=== PATIENT | female | born 1985 | race Caucasian/White ===

== ENCOUNTER 2024-11-25 16:24 | Observation (INO) | payer MEDICAID, SELFPAY ==
[2024-11-25] VITALS (67 sets, daily range): BP systolic 111–134; BP diastolic 61–82; PULSE 78–104; RESP 18–99; TEMP 36.9–37; O2SAT 88–100; BMI 23.7
--- NOTE | 2024-11-25 16:53 | XR_ITS ---
Examination: Complete OB ultrasound greater than 14 weeks Date and time of exam: November 25, 2024, 1723 hours INDICATIONS: No care Findings: Viable intrauterine single fetus with single amniotic sac presentation Vertex. Cardiac motion 137 BPM. Placenta fundal grade 3. Amniotic fluid volume within normal limits. Ovaries obscured by bowel gas.. Composite estimated gestational age based on BPD, head circumference, abdominal circumference, femur length is 36 weeks 4 days Estimated weight 2908.9 g. Survey of intracranial anatomy, spinal anatomy, abdominal anatomy, four-chamber heart performed with no abnormalities identified. Impression: Viable intrauterine gestation vertex presentation.
[2024-11-25 17:27] LABS: Amphetamine/Metham Scrn,Ur OB Positive (Negative); Benzoylecgonine Screen, Ur OB Negative (Negative); Opiate Screen,Urine OB Negative (Negative); THC Screen,Urine OB Positive (Negative)
[2024-11-25 17:28] LABS: Amphetamines/Metham U Confirm* See Sep Rpt; THC U Confirm* See Sep Rpt
[2024-11-25 17:29] LABS: ROM Kit Lot # 58102387; ROM Swab Mixed By: EN; Rupture of Fetal Membranes Negative (Negative); Swb Mxed in Solvent 1 min? Yes
[2024-11-25 18:31] LABS: Basophils # (Auto) 0.0 Thou/mm3 (0.0-0.2); Basophils % (Auto) 0 % (0-2.5); Eosinophils # (Auto) 0.1 Thou/mm3 (0.0-0.5); Eosinophils % (Auto) 1 % (0-10); Hematocrit 28.8 % (36.0-46.0); Hemoglobin 9.2 g/dL (12.0-16.0); Immature Granulocytes Auto 0.10 Thou/mm3 (0.00-0.00); Lymphocytes # (Auto) 1.5 Thou/mm3 (1.0-4.8); Lymphocytes % (Auto) 14 % (10-50); Mean Corpuscular HGB Conc 31.9 g/dl (31.0-37.0); Mean Corpuscular Hemoglobin 22.0 pg (25.0-35.0); Mean Corpuscular Volume 69 fL (80-100); Monocytes # (Auto) 0.5 Thou/mm3 (0.0-0.8); Monocytes % (Auto) 5 % (0-12); Neutrophils # (Auto) 8.4 Thou/mm3 (1.8-7.7); Neutrophils % (Auto) 79 % (37-80); Nucleated Red Blood Cell # 0.02 Thou/mm3 (0.00-0.00); Nucleated Red Blood Cell % 0 /100 WBC (0); Platelet Count 317 Thou/mm3 (140-440); RDW Standard Deviation 42.5 fL (36.4-46.3); Red Blood Count 4.18 Miln/mm3 (4.00-5.20); White Blood Count 10.6 Thou/mm3 (3.6-11.0)
[2024-11-25 19:06] LABS: HIV (1&2) Antibody Rapid Non-Reactive
[2024-11-25] MEDS: TERBUTALINE SULF INJ 1 MG/ML VIAL 0.25 MG SC (19:07)
[2024-11-25] MEDS: ACETAMINOPHEN 500 MG TABLET 1000 MG PO (20:33)
[2024-11-25 20:36] LABS: Collection Type, Urine Clean Catch
[2024-11-25 20:38] LABS: Fibrinogen 469 mg/dL (175-375); INR 0.9 (0.9-1.3); Partial Thromboplastin Time 24.2 Seconds (22.0-36.0); Prothrombin Time 10.0 Seconds (9.0-12.2)
[2024-11-25] MEDS: RINGERS LACTATED 1000 ML 1,000 ML 999 ML IV (20:42)
[2024-11-25 20:45] LABS: Alanine Aminotransferase 33 U/L (10-49); Albumin, Serum 3.5 gm/dL (3.5-5.0); Albumin/Globulin Ratio 1.5 (1.2-2.2); Alkaline Phosphatase 139 U/L (46-116); Anion Gap 10 (7-16); Aspartate Amino Transferase 34 U/L (0-34); BUN/Creatinine Ratio 7 Ratio (12-20); Bilirubin,Total 0.4 mg/dL (0.3-1.2); Blood Urea Nitrogen < 5 mg/dL (9-23); Calcium 8.3 mg/dL (8.3-10.6); Calcium (Corrected) 8.7 mg/dL (8.5-10.1); Carbon Dioxide 22.1 mMol/L (20.0-31.0); Chloride 109 mMol/L (98-107); Creatinine (Component) 0.7 mg/dL (0.6-1.3); Estimated Creatinine Clearance 107.0 mL/min (>60); Globulin 2.4 gm/dL (2.3-3.5); Glucose 93 mg/dL (74-106); Osmolality,Calculated 278 (275-295); Potassium 3.7 mMol/L (3.4-5.1); Sodium 141 mMol/L (136-145); Total Protein 5.9 gm/dL (5.7-8.2); Uric Acid 4.7 mg/dL (3.1-7.8); eGFR > 60 See Note
[2024-11-25 20:47] LABS: Bacteria,Urine Rare; Bilirubin,Urine Negative (Negative); Blood,Urine Negative (Negative); Clarity,Urine Clear (Clear/Hazy); Color,Urine Yellow (Lt Yel-Yel); Glucose, Urine Negative (Negative); Ketones,Urine Negative (Negative); Leukocyte Esterase,Urine Positive (Negative); Nitrite,Urine Negative (Negative); PH,Urine 6.0 (5.0-7.0); Protein,Urine Negative (Neg - Trace); RBC,Urine 1 /hpf (0-3); Specific Gravity,Urine 1.011 (1.001-1.035); Squamous Epithelial Cell,Urine 2 /hpf (0-5); Urobilinogen,Urine 4.0 mg/dL (0.0-1.0); WBC,Urine 2 /hpf (0-5)
[2024-11-25 20:51] LABS: Creatinine,Random Urine 71 mg/dL (30-125); Protein Total, Random Urine 13 mg/dL (1-14)
[2024-11-25 21:22] LABS: Hepatitis B Surface Antigen Non Reactive (Non React); Rubella, IgG Antibody Reactive (Immune)
[2024-11-25 21:43] LABS: Path Review Blood Smear Sent to Pathologist
[2024-11-25 22:31] LABS: Syphilis Reactive (Nonreactive)
[2024-11-25 22:32] LABS: MHATP/TP-PA* See Sep Rpt
[2024-11-26 08:10] LABS: Chlamydia trachomatis PCR Negative (Not Detect); Neisseria Gonorrhoeae DNA PCR Negative (Not Detect); Trichomonas Negative (Negative)
--- NOTE | 2024-11-26 09:15 | PD.LDPN ---
Documentation for date of: 11/26/24 OB Labor Progress Note Pelvic Exam Dilation (cm): 2.5 Effacement (%): 75 station: -2 Amniotic membrane status: Intact Contractions Monitor mode: External Contraction frequency: irregular Contraction intensity: Mild Status status: Category l Assessment and Plan Comments: Triage Note (for encounter on 11/25/24) Martha is a 39yo with SIUP at 36+wk by lmp only (no care) presenting to L&D for contractions and leakage of fluid, uncertain when started. Not breathing through ctx, feels them as regular and then irregular. No vaginal bleeding, no lof. Normal movement. Current : No care Previous pregnancies: history of 6 vaginal deliveries followed by one section for intolerance of labor, 1 sab treated with D&C. Proven to 7lb9oz. She denies any pertinent PMhx She denies any surgeries other than 1 and 1 D&C ROS negative other than what was described above. Vitals wnl, afebrile General: well developed, well nourished, no acute distress, conversant Cardiac: normal heart rate Lungs: breathing without distress Abdomen: soft, gravid, non-tender, no rebound or guarding Extremities: no edema of BLE SCE: 2-3/75/-2, intact. Unchanged on 2 subsequent exams while in triage. NST: Reactive, +accels, no decels, mod michael [place]: irregular ctx Labs: Hgb 9.2 Plt 317 serum creat 0.7 AST/ALT wnl urine prot:creat 0.18 Amnisure negative UDS: positive for amphetamines and THC Syphilis serology reactive (T pal pending) Hep Bs antigen: non-reactive HIV: non-reactive Rubella: reactive Gonorrhea and Chlamydia: negative Trichomonas: negative O pos MBT Radiology: Examination: Complete OB ultrasound greater than 14 weeks Date and time of exam: November 25, 2024, 1723 hours INDICATIONS: No care Findings: Viable intrauterine single fetus with single amniotic sac presentation Vertex. Cardiac motion 137 BPM. Placenta fundal grade 3. Amniotic fluid volume within normal limits. Ovaries obscured by bowel gas.. Composite estimated gestational age based on BPD, head circumference, abdominal circumference, femur length is 36 weeks 4 days Estimated weight 2908.9 g. Survey of intracranial anatomy, spinal anatomy, abdominal anatomy, four-chamber heart performed with no abnormalities identified. Impression: Viable intrauterine gestation vertex presentation. Assessment: Martha is a 39yo with SIUP at 36w4d by ultrasound today with no evidence of ROM or labor based on SCE, toco, and negative amnisure testing. Vitals wnl, benign exam. Reassuring status. complicated by: -No care -History of one prior section after 6 vaginal deliveries -AMA -Labs today show: Reactive RPR (T Pal pending) UDS positive for amphetamines and THC Anemia, Hgb 9.2 -Significantly, in triage patient was a very difficult blood draw and IV was placed to administer IVF which required ultrasound guidance and still ultimately infiltrated. This will be pertinent at time of admission for delivery and should be anticipated I discussed with patient that is not performed at [facility] by current policy. If she desired , she would need to present to a hospital in [place] or [place] in labor. If she presents here in labor, we would perform a repeat section. We discussed that it would be possible to perform BTL at that time if she desired. She endorses 100% satisfied with childbearing, desires no further pregnancies in the future. She would like to have BTL performed at time of section. After discussing all risks/benefits/alternatives, she signed the CA consent form and it was faxed to medical records to put into her chart in the EMR. Plan: -Safe for discharge at this time -Patient was instructed to call [facility] clinic to make a appointment this week. It would be best to schedule RLTCS with BTL at 39 weeks. The contact information was placed in the discharge paperwork. -Return precautions were discussed -T Pal pending, will need to be followed up at clinic appt -Rx iron Maritza eMehan MD
== END 2024-11-26 00:15 | disposition home or self-care (01) ==
PROVIDERS: Admitting Provider Obstetrics & Gynecology; Visit Provider Obstetrics & Gynecology
DX: O47.03 False labor before 37 completed weeks of gestation, third trimester (principal); O09.33 Supervision of pregnancy with insufficient antenatal care, third trimester; Z3A.36 36 weeks gestation of pregnancy; O34.211 Maternal care for low transverse scar from previous cesarean delivery; O99.013 Anemia complicating pregnancy, third trimester; D64.9 Anemia, unspecified
CPT/HCPCS: 36415; 59899; 76805; 80053; 80307; 81001; 82570; 84112; 84156; 84550; 85025; 85384; 85610; 85730; 86703; 86762; 86780; 86850; 86900; 86901; 87081; 87340; 87491; 87591; 87661; 96372; J3105; J7120; A9270

== ENCOUNTER 2024-12-02 22:25 | Inpatient (IN) | payer MEDICAID, SELFPAY ==
[2024-12-02] VITALS (21 sets, daily range): BP systolic 124–141; BP diastolic 82; PULSE 78–95; RESP 17–98; TEMP 36.8; O2SAT 92–100; BMI 23.6
[2024-12-02] MEDS: RINGERS LACTATED 1000 ML 1,000 ML 100 ML IV (23:00)
[2024-12-02] MEDS: TERBUTALINE SULF INJ 1 MG/ML VIAL 0.25 MG SC (23:17)
[2024-12-02 23:21] LABS: Basophils # (Auto) 0.0 Thou/mm3 (0.0-0.2); Basophils % (Auto) 0 % (0-2.5); Eosinophils # (Auto) 0.1 Thou/mm3 (0.0-0.5); Eosinophils % (Auto) 1 % (0-10); Hematocrit 26.4 % (36.0-46.0); Immature Granulocytes Auto 0.21 Thou/mm3 (0.00-0.00); Lymphocytes # (Auto) 1.8 Thou/mm3 (1.0-4.8); Lymphocytes % (Auto) 15 % (10-50); Mean Corpuscular HGB Conc 29.9 g/dl (31.0-37.0); Mean Corpuscular Hemoglobin 20.9 pg (25.0-35.0); Mean Corpuscular Volume 70 fL (80-100); Monocytes # (Auto) 1.0 Thou/mm3 (0.0-0.8); Monocytes % (Auto) 8 % (0-12); Neutrophils # (Auto) 8.7 Thou/mm3 (1.8-7.7); Neutrophils % (Auto) 74 % (37-80); Nucleated Red Blood Cell # 0.06 Thou/mm3 (0.00-0.00); Nucleated Red Blood Cell % 1 /100 WBC (0); Platelet Count 318 Thou/mm3 (140-440); RDW Standard Deviation 44.7 fL (36.4-46.3); Red Blood Count 3.78 Miln/mm3 (4.00-5.20); White Blood Count 11.9 Thou/mm3 (3.6-11.0)
[2024-12-02 23:31] LABS: Amphetamine/Metham Scrn,Ur OB Positive (Negative); Benzoylecgonine Screen, Ur OB Negative (Negative); Opiate Screen,Urine OB Negative (Negative); THC Screen,Urine OB Positive (Negative)
[2024-12-02 23:33] LABS: Amphetamines/Metham U Confirm* See Sep Rpt; THC U Confirm* See Sep Rpt
--- NOTE | 2024-12-02 23:39 | PD.LDHP ---
Documentation for date of: 12/02/24 OB Labor/Induct. HPI History of Present Illness : 8 Term pregnancies: 7 pregnancies: 0 Living children: 7 History of Abortions: Spontaneous and Elective: 0 History of Vaginal deliveries: 6 History of sections: Yes History of : No TRAMAINE: 12/19/24 History of present illness: 39-year-old 8 para 6-0-1-6 presented to triage with gross rupture of membranes. Patient has a history of 1 and the remaining were vaginal deliveries. No care in the current , she was seen here in triage about 2 weeks ago and all her labs were done at the time. On admission patient admitted to using methamphetamine as well as THC By the best estimate she has a estimated due date of 12/19/2024 that makes her 37 weeks and 5 days Of note patient had a positive RPR with TP a titer of 1 and 2. Her toxicology screen today is positive for THC and methamphetamine. Labs Labs: Positive: RPR and Rubella Titre, Negative: Hepatitis B, HIV, Chlamydia and Gonorrhea and Unknown: Herpes Type 1, Herpes Type 2 and Group Beta Strep Review of Systems Review of Systems Systems Reviewed: All systems reviewed, normal except as documented Past Medical History Surgical History SURGICAL: Positive Section Meds Home Medications and Allergies Home Medications ?Medication ?Instructions ?Recorded ?Confirmed ?Type No Known Home Medications 12/02/24 12/02/24 History Allergies Allergy/AdvReac Type Severity Reaction Status Date / Time No Known Allergies Allergy Unknown Verified 12/02/24 23:23 OB Exam Physical Exam Vital signs: Pulse BP Pulse Ox 81 124/82 98 12/02/24 23:27 12/02/24 23:27 12/02/24 23:37 Constitutional Constitutional: no acute distress Routine HEENT Exam Head: Present normocephalic and atraumatic Eye: Present EOMI and PERRL ENT: Present mucous membranes moist Routine Neck Exam Neck: Present supple and trachea midline Routine Cardiovascular Exam Cardiovascular: Present RRR Routine Abdominal Exam Abdominal: Present soft and normoactive bowel sounds Detailed Labor and Delivery Exam Dilation (cm): 4 Effacement (%): 100 Cervix position: mid station: -3 Consistency: soft Presentation: Vertex Baseline heart rate: 130 monitor accelerations: 15x15 monitor decelerations: None snf variability: Average (6-10) Routine Extremities Exam Extremities: Present full ROM Routine Skin Exam Skin: Present intact, dry and warm Routine Neurological Exam Neurological: Present alert, oriented X3 and CN II-XII intact Routine Psychiatric Exam Psychiatric: Present normal affect and normal thought process OB Results Labs 12/02/24 23:00 OB Assessment & Plan Assessment and Plan (1) No care in current : Status: Acute (2) Previous delivery affecting : Status: Acute Assessment and plan: Admit to inpatient status for repeat low transverse IV access, CBC, type and screen, LR at 125, RPR, COVID-19 test GBS negative Ancef 2 g prior to surgery start Cheema catheter to drainage SCDs for DVT prophylaxis Anesthesia to preop for spinal anesthesia Scheduled for surgery.
[2024-12-02 23:41] LABS: Hemoglobin 7.9 g/dL (12.0-16.0)
[2024-12-02] MEDS: ceFAZolin/D5W 2 GM IV 2 GM/100 ML BAG IV (23:58)
[2024-12-02] MEDS: METOCLOPRAMIDE INJ 5 MG/ML VIAL 2 ML 10 MG IVP (23:59)
[2024-12-02] MEDS: FAMOTIDINE INJ 10 MG/ML VIAL 2 ML 20 MG IV (23:59)
[2024-12-03] VITALS (16 sets, daily range): BP systolic 97–138; BP diastolic 71–93; PULSE 60–90; RESP 12–18; TEMP 36.4–36.9; O2SAT 96–100
[2024-12-03 00:09] LABS: MHATP/TP-PA* See Sep Rpt; Syphilis Reactive (Nonreactive)
--- NOTE | 2024-12-03 01:07 | ESOP_ITS ---
Operative Note - LEARNING DESIGNER Procedure Date of procedure: 12/03/24 Procedure Performed: Repeat low-transverse section with bilateral salpingectomy Indication: 39-year-old 8 para 6 presenting with spontaneous rupture of membranes at approximately 37 weeks No care, all labs and dating were done during triage visit at 35 weeks Previous section Methamphetamine use and THC use Anesthesia type: Spinal Procedure description: Informed consent was obtained and the patient was brought to the operating room after identity verification with double identifiers. With the patient in the supine position under spinal anesthesia, the abdomen and perineum were prepped in standard sterile fashion and a Cheema catheter was placed for continuous drainage. After applying sterile drapes and confirming anesthesia adequacy, a Pfannenstiel incision was made through the subcutaneous tissue to the rectus fascia. The fascia was incised bilaterally off the midline, and the rectus muscles were gently to expose and bluntly enter the peritoneum. The peritoneal opening was extended and an Emanuel O-ring retractor was placed to i mprove visualization. A low transverse Janak Monteiro uterine incision was made in the lower segment, carefully avoiding the bladder. Uterine entry was achieved bluntly, and the opening was extended to allow rupture of the amniotic membranes and release of clear amniotic fluid. The fetus, in vertex position, was delivered after gently elevating the head and releasing a single nuchal cord loop; the remainder of the body was delivered with gentle fundal pressure. The umbilical cord was doubly clamped, divided, and the was transferred to the team, with cord gas samples obtained subsequently. The placenta was delivered by gentle traction, and the uterine cavity was thoroughly cleaned of blood, debris, and membranes. The hysterotomy was closed in two layers using 1 Monocryl suture. The first layer approximated the uterine muscle in a running locked fashion, while the second imbricated the myometrium and serosa. After confirming hemostasis at the hysterotomy site, attention was directed to bilateral salpingectomies. Each fallopian tube was elevated with a Amee clamp, the mesosalpinx exposed, and the salpingectomy was performed using the Enaseal vessel sealing device, with both specimens sent for pathological examination. Hemostasis at the salpingectomy sites was confirmed. The Emanuel retractor was then removed, and the peritoneal edges and rectus muscles were reapproximated. The rectus fascia was closed in a running fashion using 0 Vicryl suture. Following copious irrigation of the subcutaneous tissue with warm normal saline and cauterization of bleeding points, the subcutaneous fat was closed with 3-0 Vicryl. The skin was closed using the INSORB technique in a subcuticular manner. The incision was subsequently cleaned and dressed with Dermabond Prenio followed by a pressure dressing. The patient was then undraped, her abdomen and back were cleaned, and she was transferred to the recovery room in stable and awake condition. The procedure was well tolerated without complications, and all instrument, sponge, and laparotomy counts were correct. Specimen: left tube and right tube Estimated blood loss (ml): 700 Complications: none Surgical staff Operation Date: 12/03/24 00:00 <No data on this case meets the specified criteria> Diagnosis Discharge Diagnosis (1) Previous delivery affecting : Status: Acute (2) Substance use disorder: Status: Acute (3) S/P section: Status: Acute (4) Encounter for sterilization: Status: Acute (5) Methamphetamine use: Status: Acute Problem List Completed Was Problem List Reviewed/Reconciled?: Yes
--- NOTE | 2024-12-03 01:10 | PD.LDDELS ---
Data ([place]) Data Hx Section: Yes : 8 Term: 7 : 0 Livin Abortions: Spontaneous & Theraputic: 0 Delivery Data ([place]) Labor Data ROM date: 12/02/24 ROM time: 22:15 Amniotic membrane rupture type: Spontaneous Amniotic fluid description: Clear Delivery Data Delivered by: TAZ Delivery Method Presentation: Vertex Anesthesia Type Anesthesia type: Spinal
[2024-12-03] MEDS: ceFAZolin/D5W 2 GM IV 2 G/100 ML BAG IV (06:09)
[2024-12-03] MEDS: RINGERS LACTATED 1000 ML 1,000 ML 125 ML IV (06:10)
[2024-12-03 06:28] LABS: Basophils # (Auto) 0.0 Thou/mm3 (0.0-0.2); Basophils % (Auto) 0 % (0-2.5); Eosinophils # (Auto) 0.0 Thou/mm3 (0.0-0.5); Eosinophils % (Auto) 0 % (0-10); Hematocrit 26.4 % (36.0-46.0); Immature Granulocytes Auto 0.27 Thou/mm3 (0.00-0.00); Lymphocytes # (Auto) 1.0 Thou/mm3 (1.0-4.8); Lymphocytes % (Auto) 8 % (10-50); Mean Corpuscular HGB Conc 29.5 g/dl (31.0-37.0); Mean Corpuscular Hemoglobin 21.1 pg (25.0-35.0); Mean Corpuscular Volume 71 fL (80-100); Monocytes # (Auto) 0.4 Thou/mm3 (0.0-0.8); Monocytes % (Auto) 3 % (0-12); Neutrophils # (Auto) 11.4 Thou/mm3 (1.8-7.7); Neutrophils % (Auto) 87 % (37-80); Nucleated Red Blood Cell # 0.04 Thou/mm3 (0.00-0.00); Nucleated Red Blood Cell % 0 /100 WBC (0); Platelet Count 145 Thou/mm3 (140-440); RDW Standard Deviation 45.2 fL (36.4-46.3); Red Blood Count 3.70 Miln/mm3 (4.00-5.20); White Blood Count 13.1 Thou/mm3 (3.6-11.0)
[2024-12-03 06:37] LABS: Alanine Aminotransferase 15 U/L (10-49); Albumin, Serum 3.1 gm/dL (3.5-5.0); Albumin/Globulin Ratio 1.5 (1.2-2.2); Alkaline Phosphatase 127 U/L (46-116); Anion Gap 8 (7-16); Aspartate Amino Transferase 27 U/L (0-34); BUN/Creatinine Ratio 11 Ratio (12-20); Bilirubin,Total 0.3 mg/dL (0.3-1.2); Blood Urea Nitrogen 8 mg/dL (9-23); Calcium 8.2 mg/dL (8.3-10.6); Calcium (Corrected) 8.9 mg/dL (8.5-10.1); Carbon Dioxide 22.0 mMol/L (20.0-31.0); Chloride 108 mMol/L (98-107); Creatinine (Component) 0.7 mg/dL (0.6-1.3); Estimated Creatinine Clearance 107.0 mL/min (>60); Globulin 2.1 gm/dL (2.3-3.5); Glucose 105 mg/dL (74-106); LDH (Lactate Dehydrogenase) 253 U/L (120-246); Osmolality,Calculated 273 (275-295); Potassium 4.7 mMol/L (3.4-5.1); Sodium 138 mMol/L (136-145); Total Protein 5.2 gm/dL (5.7-8.2); Uric Acid 4.2 mg/dL (3.1-7.8); eGFR > 60 See Note
[2024-12-03 06:38] LABS: Hemoglobin 7.8 g/dL (12.0-16.0)
[2024-12-03] MEDS: OXYTOCIN in NS 20 units 20 UNIT/1,000 ML BAG 125 UNIT IV (07:01)
[2024-12-03 07:10] LABS: B-Type Natriuretic Peptide 67 pg/mL (0-100)
--- NOTE | 2024-12-03 07:53 | PC.CC ---
Addendum entered by Josephine Phillips 12/03/24 07:58: ASW attempted to contact [facility] Child Welfare Services, but video games storywriter reached the answering service. Cleaning Custodian was told a worker will call back. As of this writing, video games storywriter has not received a call back. Original Note: ASW contacted OB this AM and will f/u with pt regarding a positive Meth and positive THC for this pt. Pts infant is in the NICU and ASW will f/u today with both.
[2024-12-03] MEDS: KETOROLAC INJ 30 MG/ML VIAL IVP (08:04)
--- NOTE | 2024-12-03 11:10 | PC.CC ---
Addendum entered by Josephine Phlilips 12/04/24 13:42: At this time, [facility]/S Carina [phone] or can be [phone] is still in her investigation stage. Carina stated that she will keep in touch with the social sciences professor at the [facility] or they can call her daily to find out any updates. Carina stated she will have a determination on what will happen with the by the time the is done with the antibiotics. At this time, the baby is on day 06/18 penicillin treatment. Estimated d/c date is on 12/11/24. SS is to contact [facility] Carina [phone] or can be [phone] for any updates. If she cannot be reached, SS is to call [phone] to report additional information or call her gate services supervisor Christina Reyna at [phone]. also needs a daily notes by SS. Original Note: ASW completed a face to face biopsychosocial assessment with the pt at bedside. FOB was present but he was asleep. ASW introduced self, role, and reason for assessment. ASW disclosed limits of confidentiality as well. Patient appeared alert and oriented to self, place, and situation. Patient was pleasant; her mood appeared depressed; her behavior was calm. Patient?s thought process was linear and organized. No signs of delusions, paranoid or AVH. Pt was able to provide an updated address for herself and her significant other. Pt stated her updated address is [address] [place] [address]. Pt reported she receives medi-zach and food stamps in the amount of $293 a month. Pt denies receiving gunderson aid. Pt reported denied ancestry. Pt reported she has a delivery and reported all other of her 7 deliveries were vaginal. Pt stated she does not have any of her children in her care and stated they live with her mother or their respective fathers. Pt reports she did not have care and is not ready for the infant. Pt reported she used Methamphetamine about 5 days ago and uses marijuana daily. Pt reported she used Methamphetamine throughout her and used via a pipe and smoked. Pt is unsure which Peds the infant will see. Pt reported she uses Methamphetamine with her significant other which she named as Alejo Richa, who she says is the FOB. Pt reports she considers FOB as her one and only support and named a friend Karissa who is her other support. Pt reports she delivered at 37 weeks gestational age. Pt reports she has not yet been allowed to see the infant or hold her, but states she will see the infant today at 12noon. Therefore, pt has not yet had the opportunity to sosa with the infant.:PT Pt denies prior CWS history. Pt reports she is interested in drug rehabilitation and ASW provided the pt with community resources such as AOD counseling and MH counseling. Pt was receptive. Pt reports the has not been on lights and is unaware of any medical concerns for the infant at this time. Pt reports that prior to entering the hospital she was able to perform her own ADLs and did not use DME. Pt reports she had a so her movement is limited. Pt was viewed to be calm and cooperative. Manufacturing Systems Engineer explained that since her toxicology report returned as positive for Methamphetamines, it is the obligation of this verse writer to call in a CWS/CPS report of suspected child abuse/neglect. Pt stated she understood and was waiting for this to happen. Pt reports she has been smoking meth for years. Pt reports she is willing to enter a drug rehab if offered. Manufacturing Systems Engineer informed pt that since I am a mandated reported, verse writer would need to call in a report to CWS/CPS and pt understood and also explained that if she is offered court ordered services, she would be able to ask about drug rehabilitation. ASW provided community resources such as flyers to Drug and Alcohol services, Mental health services and the Guide to MH services for [facility] and to the [facility]. Pt was receptive and cooperative. EOC Manufacturing Systems Engineer then contacted [facility] CWS/CPS and made a mandated landfill attendant SCAR report to on-call box wirer Adela Barbosa. ASW also submitted the SCAR via to [email or web address]. ASW was informed that a SSWIII/CWS will respond today, but unsure as to the time.
[2024-12-03] MEDS: IBUPROFEN TAB 400 MG TABLET 800 MG PO (17:53)
--- NOTE | 2024-12-03 18:10 | ESPR_ITS ---
Subjective Subjective Interval history: Patient is a 39-year-old G8, P7 status repeat and tubal ligation by Dr. Davidson late 12/02/2024 close to midnight. She is resting comfortably in bed this morning her Cheema catheter is in place she wants to see the baby. Of note her drug screen was positive for methamphetamines and marijuana. She had no care this . She denies heavy bleeding fevers or chills. Her hemoglobin is only 7.8. I will check a second CBC on postop day 2. She is tolerating a general diet not out of bed yet. Exam Vital Signs Temp Pulse Resp BP Pulse Ox O2 Del Method O2 Flow Rate 98.5 F 79 18 97/71 100 Room Air 2 12/03/24 15:00 12/03/24 15:00 12/03/24 15:00 12/03/24 15:00 12/03/24 15:00 12/03/24 15:00 12/03/24 01:25 Narrative Exam Fundus is firm nontender dressing is in place Objective Labs 12/03/24 05:12 12/03/24 05:12 Labs: Laboratory Results - last 24 hr 12/02/24 12/02/24 12/02/24 23:00 23:00 23:00 WBC 11.9 H RBC 3.78 L Hgb 7.9 L Hct 26.4 L MCV 70 L MCH 20.9 L MCHC 29.9 L RDW Std Deviation 44.7 Plt Count 318 Neut % (Auto) 74 Lymph % (Auto) 15 [place] % (Auto) 8 Eos % (Auto) 1 Baso % (Auto) 0 Neut # (Auto) 8.7 H Lymph # (Auto) 1.8 [place] # (Auto) 1.0 H Eos # (Auto) 0.1 Baso # (Auto) 0.0 Immature Gran # (Auto) 0.21 H Absolute Nucleated RBC 0.06 H Immature Gran % 2 H Nucleated RBC % 1 H Sodium Potassium Chloride Carbon Dioxide Anion Gap BUN Creatinine Estim Creat Clear Calc eGFR BUN/Creatinine Ratio Glucose Calculated Osmolality Uric Acid Calcium Corrected Calcium Total Bilirubin AST ALT Alkaline Phosphatase Lactate Dehydrogenase B-Natriuretic Peptide Total Protein Albumin Globulin Albumin/Globulin Ratio Urine Opiates Screen Negative U Amphetamin/Meth Scrn Positive A U Cocaine Metab Screen Negative U Marijuana (THC) Screen Positive A Syphilis Serology Reactive A Blood Type O Positive Cancelled Antibody Screen NEGATIVE Cancelled Crossmatch See Detail Blood Bank Wristband ID Yes 12/02/24 12/03/24 23:00 05:12 WBC 13.1 H RBC 3.70 L Hgb 7.8 L Hct 26.4 L MCV 71 L MCH 21.1 L MCHC 29.5 L RDW Std Deviation 45.2 Plt Count 145 D Neut % (Auto) 87 H Lymph % (Auto) 8 L [place] % (Auto) 3 Eos % (Auto) 0 Baso % (Auto) 0 Neut # (Auto) 11.4 H Lymph # (Auto) 1.0 [place] # (Auto) 0.4 Eos # (Auto) 0.0 Baso # (Auto) 0.0 Immature Gran # (Auto) 0.27 H Absolute Nucleated RBC 0.04 H Immature Gran % 2 H Nucleated RBC % 0 Sodium 138 Potassium 4.7 Chloride 108 H Carbon Dioxide 22.0 Anion Gap 8 BUN 8 L Creatinine 0.7 Estim Creat Clear Calc 107.0 eGFR > 60 BUN/Creatinine Ratio 11 L Glucose 105 Calculated Osmolality 273 L Uric Acid 4.2 Calcium 8.2 L Corrected Calcium 8.9 Total Bilirubin 0.3 AST 27 ALT 15 Alkaline Phosphatase 127 H Lactate Dehydrogenase 253 H B-Natriuretic Peptide 67 Total Protein 5.2 L Albumin 3.1 L Globulin 2.1 L Albumin/Globulin Ratio 1.5 Urine Opiates Screen U Amphetamin/Meth Scrn U Cocaine Metab Screen U Marijuana (THC) Screen Syphilis Serology Blood Type Antibody Screen Crossmatch Blood Bank Wristband ID Cancelled Assessment & Plan Problem List (1) Previous delivery affecting : Status: Acute (2) Substance use disorder: Status: Acute (3) S/P section: Problem details: Remove Cheema at 12 hours. Ambulate. Advance diet as tolerated. Social work consult. Recheck CBC in the morning. Status: Acute (4) Encounter for sterilization: Problem details: Patient status post tubal ligation with her . Status: Acute (5) Methamphetamine use: Problem details: Social work consult Status: Acute Time Spent With Patient Time: Total time spent is greater than 50% in coordination of care (as documented) at patient's floor/unit and/or counseling patient: Time with patient: less than 15 minutes
--- NOTE | 2024-12-03 23:44 | ESPR_ITS ---
Subjective Subjective Interval history: Patient is resting comfortably in bed. Called by RN to evaluate incision as it is a little has a little bit of bleeding. The dressing was replaced. Patient has gotten up and is walking and has showered. Exam Vital Signs Temp Pulse Resp BP Pulse Ox O2 Del Method O2 Flow Rate 98.5 F 79 18 97/71 100 Room Air 2 12/03/24 15:00 12/03/24 15:00 12/03/24 15:00 12/03/24 15:00 12/03/24 15:00 12/03/24 15:00 12/03/24 01:25 Narrative Exam Fundus firm nontender extremities show 3+ edema, dressing clean dry and intact a very small approximately 3 inch area in the midline has some blood on it. No active soaking of the dressing. No discomfort upon examining the patient. No erythema. Objective Labs 12/03/24 05:12 12/03/24 05:12 Labs: Laboratory Results - last 24 hr 12/02/24 12/03/24 23:00 05:12 WBC 13.1 H RBC 3.70 L Hgb 7.8 L Hct 26.4 L MCV 71 L MCH 21.1 L MCHC 29.5 L RDW Std Deviation 45.2 Plt Count 145 D Neut % (Auto) 87 H Lymph % (Auto) 8 L [place] % (Auto) 3 Eos % (Auto) 0 Baso % (Auto) 0 Neut # (Auto) 11.4 H Lymph # (Auto) 1.0 [place] # (Auto) 0.4 Eos # (Auto) 0.0 Baso # (Auto) 0.0 Immature Gran # (Auto) 0.27 H Absolute Nucleated RBC 0.04 H Immature Gran % 2 H Nucleated RBC % 0 Sodium 138 Potassium 4.7 Chloride 108 H Carbon Dioxide 22.0 Anion Gap 8 BUN 8 L Creatinine 0.7 Estim Creat Clear Calc 107.0 eGFR > 60 BUN/Creatinine Ratio 11 L Glucose 105 Calculated Osmolality 273 L Uric Acid 4.2 Calcium 8.2 L Corrected Calcium 8.9 Total Bilirubin 0.3 AST 27 ALT 15 Alkaline Phosphatase 127 H Lactate Dehydrogenase 253 H B-Natriuretic Peptide 67 Total Protein 5.2 L Albumin 3.1 L Globulin 2.1 L Albumin/Globulin Ratio 1.5 Syphilis Serology Reactive A Blood Type O Positive Antibody Screen NEGATIVE Crossmatch See Detail Blood Bank Wristband ID Yes Assessment & Plan Problem List (1) Previous delivery affecting : Status: Acute (2) Substance use disorder: Status: Acute (3) S/P section: Problem details: Remove Cheema at 12 hours. Ambulate. Advance diet as tolerated. Social work consult. Recheck CBC in the morning. Status: Acute (4) Encounter for sterilization: Problem details: Patient status post tubal ligation with her . Status: Acute (5) Methamphetamine use: Problem details: Social work consult Status: Acute Time Spent With Patient Time: Total time spent is greater than 50% in coordination of care (as documented) at patient's floor/unit and/or counseling patient:
[2024-12-04] VITALS (17 sets, daily range): BP systolic 114–146; BP diastolic 71–88; PULSE 61–82; RESP 14–18; TEMP 36.1–36.9; O2SAT 96–100
[2024-12-04] MEDS: HYDROcodone/APAP 5/325 TABLET 2 TAB PO ×2 (00:41→15:51)
[2024-12-04 05:55] LABS: Basophils # (Auto) 0.1 Thou/mm3 (0.0-0.2); Basophils % (Auto) 0 % (0-2.5); Eosinophils # (Auto) 0.0 Thou/mm3 (0.0-0.5); Eosinophils % (Auto) 0 % (0-10); Hematocrit 24.2 % (36.0-46.0); Immature Granulocytes Auto 0.39 Thou/mm3 (0.00-0.00); Lymphocytes # (Auto) 2.8 Thou/mm3 (1.0-4.8); Lymphocytes % (Auto) 18 % (10-50); Mean Corpuscular HGB Conc 30.2 g/dl (31.0-37.0); Mean Corpuscular Hemoglobin 21.3 pg (25.0-35.0); Mean Corpuscular Volume 71 fL (80-100); Monocytes # (Auto) 1.3 Thou/mm3 (0.0-0.8); Monocytes % (Auto) 8 % (0-12); Neutrophils # (Auto) 11.4 Thou/mm3 (1.8-7.7); Neutrophils % (Auto) 71 % (37-80); Nucleated Red Blood Cell # 0.09 Thou/mm3 (0.00-0.00); Nucleated Red Blood Cell % 1 /100 WBC (0); Platelet Count 322 Thou/mm3 (140-440); RDW Standard Deviation 44.8 fL (36.4-46.3); Red Blood Count 3.43 Miln/mm3 (4.00-5.20); White Blood Count 15.9 Thou/mm3 (3.6-11.0)
[2024-12-04 06:01] LABS: Hemoglobin 7.3 g/dL (12.0-16.0)
--- NOTE | 2024-12-04 07:42 | ESPR_ITS ---
Subjective Subjective Interval history: Delivery type: with bilateral salpingectomy Patient doing well this morning. No acute complaints. Ambulating, tolerating p.o. and voiding without difficulty. HTN/Pre-Eclampsia screen: No chest pain, shortness of breath, headache, visual changes, epigastric or right upper quadrant pain. Breast-feeding, lochia diminishing. Bowel: Flatus+/ BM+ Exam Vital Signs Temp Pulse Resp BP Pulse Ox O2 Del Method O2 Flow Rate 97.9 F 71 18 127/85 H 100 Room Air 2 12/04/24 04:06 12/04/24 04:06 12/04/24 04:06 12/04/24 04:06 12/04/24 04:06 12/04/24 04:06 12/03/24 01:25 Constitutional Constitutional: no acute distress Routine HEENT Exam Head: Present normocephalic and atraumatic Eye: Present EOMI and PERRL ENT: Present mucous membranes moist Routine Neck Exam Neck: Present supple and trachea midline Routine Respiratory Exam Respiratory: Present chest non-tender, lungs clear, normal breath sounds and no resp distress Routine Cardiovascular Exam Cardiovascular: Present RRR Routine Abdominal Exam Abdominal: Present soft and normoactive bowel sounds Routine Extremities Exam Extremities: Present full ROM Routine Skin Exam Skin: Present intact, dry and warm Routine Neurological Exam Neurological: Present alert, oriented X3 and CN II-XII intact Routine Psychiatric Exam Psychiatric: Present normal affect and normal thought process Objective Labs 12/04/24 04:50 12/03/24 05:12 Labs: Laboratory Results - last 24 hr 12/02/24 12/04/24 23:00 04:50 WBC 15.9 H RBC 3.43 L Hgb 7.3 L Hct 24.2 L MCV 71 L MCH 21.3 L MCHC 30.2 L RDW Std Deviation 44.8 Plt Count 322 D Neut % (Auto) 71 Lymph % (Auto) 18 [place] % (Auto) 8 Eos % (Auto) 0 Baso % (Auto) 0 Neut # (Auto) 11.4 H Lymph # (Auto) 2.8 [place] # (Auto) 1.3 H Eos # (Auto) 0.0 Baso # (Auto) 0.1 Immature Gran # (Auto) 0.39 H Absolute Nucleated RBC 0.09 H Immature Gran % 3 H Nucleated RBC % 1 H T.pallidum Ab (MHA) See Sep Rpt Assessment & Plan Problem List (1) Previous delivery affecting : Status: Acute (2) Substance use disorder: Status: Acute (3) S/P section: Status: Acute Assessment and plan: PPD/POD#2 1. Continue routine care 2. Transition to PO meds. 3. Encourage to ambulate/ breast-feed 4. Anticipate discharge home , tomorrow because patient was a late night C- section (4) Encounter for sterilization: Status: Acute (5) Methamphetamine use: Status: Acute Time Spent With Patient Time: Total time spent is greater than 50% in coordination of care (as documented) at patient's floor/unit and/or counseling patient:
--- NOTE | 2024-12-04 10:22 | PC.NURSE ---
At 8:05 patient consented to a blood transfusion and was provided education. At 0827 first unit of RBC was started. at 0835 iv infiltrated and secondary iv was utilized. Then at 0840 RBC was stopped due to secondary iv infiltrating. Blood bank was called and I was told to dispose of unit into biohazard and stop transfusion in tar. Charge and MANAGER TECHNICAL SUPPORT called to bedside to assist in re starting iv. After achieving a new iv. Patient stated she no longer wants to receive blood transfusion. Dr. Davidson called and made aware at 1005. Patient provided with education, and verbalized understanding.
[2024-12-04] MEDS: SIMETHICONE 80 MG CHEW PO (11:14)
--- NOTE | 2024-12-04 11:45 | PC.NURSE ---
CPS on the unit talking with patient
--- NOTE | 2024-12-04 12:20 | PC.NURSE ---
Patient taken down to main OR.
--- NOTE | 2024-12-04 13:12 | ESOP_ITS ---
Operative Note - UPPER DOUBLER Procedure Date of procedure: 12/04/24 Procedure Performed: Return to the OR and secondary repair of wound Indication: Dehiscence of wound Anesthesia type: General Procedure description: Informed consent was obtained the patient was taken to the operating room. Identity was confirmed by double identifiers and she was placed on the operating table. The patient was draped using sterile drapes. The wound dressing was removed and the skin the subcutaneous layer and the fascia were noted to have dehisced. All suture material was removed. The wound was copiously irrigated with sterile saline. Bowel was run and inspected and noted to be intact. The uterine incision was inspected and noted to be intact. The fascial edges were now traced and the angles were grasped using a pair of Juan José clamps. 1 PDS suture was used to close the fascial layer. The subcutaneous layer was closed using 2-0 Vicryl. The skin was closed using skin jayde. Hemostasis was noted to be satisfactory. No signs of wound infection/necrosis were identified. A sterile dressing was applied using Telfa and ABD with pressure bandage. The patient was undressed, general anesthesia was reversed and she was taken to the recovery room in a stable and awake condition. Patient tolerated the entire procedure well. No other complications were encountered. Estimated blood loss (ml): 20 Complications: none Surgical staff Operation Date: 12/04/24 11:45 <No data on this case meets the specified criteria> Diagnosis Discharge Diagnosis (1) Wound dehiscence, : Status: Acute Problem List Completed Was Problem List Reviewed/Reconciled?: Yes
--- NOTE | 2024-12-04 13:20 | SUR.PHASEI ---
1312: pt arrived to PACU via bed drowsy but arouses to voice, breathing unlabored, dressing to lower abdomen clean, dry, and intact, report from Alphonse BRYANT and Dr Amezcua 1320: report to Maggie Muse RN
--- NOTE | 2024-12-04 13:20 | SUR.PHASEI ---
1320 Report received from Maggie Granados RN patient resting comfortably in bed, breathing unlabored, vital signs stable, denies pain, dressing intact to lower abdomen; jayde, telfa, abd, medipore tape, no bleeding noted.
--- NOTE | 2024-12-04 13:55 | SUR.PHASEI ---
1352 Report given to Mojgan BRYANT, patient meets discharge criteria from recovery, resting comfortably in bed, breathing unlabored, vital signs stable, denies pain and nausea, dressing intact; no bleeding noted 1352 Patient transported via bed to [place] [id number] without incident, Mojgan BRYANT promptly arrived in patients room, patient resting comfortably in bed with call light in reach when this copy writer left patients room
[2024-12-04] MEDS: KETOROLAC INJ 30 MG/ML VIAL IVP (21:22)
[2024-12-04] MEDS: PIPER/TAZO 3.375 GM PREMIX 3.375 GM/50 ML BAG IV (21:23)
[2024-12-05] VITALS (13 sets, daily range): BP systolic 98–135; BP diastolic 63–90; PULSE 57–87; RESP 16–20; TEMP 36.6–36.8; O2SAT 97–100
[2024-12-05] MEDS: PIPER/TAZO 3.375 GM PREMIX 3.375 GM/50 ML BAG IV ×3 (05:44→22:05)
[2024-12-05] MEDS: DOCUSATE SOD 100 MG CAPSULE PO (08:02)
[2024-12-05] MEDS: HYDROcodone/APAP 5/325 TABLET 1 TAB PO (08:10)
[2024-12-05] MEDS: HYDROcodone/APAP 5/325 TABLET 2 TAB PO (12:10)
[2024-12-05] MEDS: HYDROMORPHONE HCL 2 MG TABLET PO ×2 (17:18→21:25)
--- NOTE | 2024-12-05 18:37 | PD.LDPPPRG ---
Subjective Subjective Interval history: Patient is a 39-year-old -0-1-8 status post repeat with tubal ligation by Dr. Davidson 11/13/2024. Patient had reported some serosanguineous discharge from her incision and Dr. Navarrete rounded on the patient and once he removed her dressing was noted that she had a wound dehiscence. He took her to the operating room for a repair under general anesthesia 12/04/2024. Today the patient is resting in bed comfortably. Her pre delivery hemoglobin was 9.[address] Ngo ordered a unit of blood but there was some difficulty with IV access and once an IV was started the patient declined the blood. Today she states she will take 2 units of blood. She will be placed on a clear liquid diet until she passes flatus as she went to sleep yesterday for the wound dehiscence repair. No fevers chills. Going to try oral Dilaudid for her pain. Also ibuprofen and Tylenol as needed Exam Vital Signs Temp Pulse Resp BP Pulse Ox O2 Del Method O2 Flow Rate 98.1 F 82 16 134/80 H 100 Room Air 2 12/05/24 15:05 12/05/24 15:05 12/05/24 15:05 12/05/24 15:05 12/05/24 15:05 12/05/24 15:05 12/05/24 12:48 Narrative Exam Patient is alert and oriented x 3 fundus is firm dressing is clean dry and intact extremities show no significant edema or erythema Objective Labs 12/04/24 04:50 12/03/24 05:12 Labs: Laboratory Results - last 24 hr 12/02/24 23:00 Blood Type O Positive Antibody Screen NEGATIVE Crossmatch See Detail Blood Bank Wristband ID Yes Assessment & Plan Problem List (1) Wound dehiscence, : Status: Acute Assessment and plan: Patient is postop day #1 after ex lap for wound dehiscence under general. Patient will be placed on clear liquid diet (2) care following delivery: Status: Acute (3) Substance use disorder: Status: Acute (4) No care in current : Status: Acute (5) Methamphetamine use: Status: Acute (6) Encounter for sterilization: Status: Acute (7) Anemia affecting ninth : Problem details: Patient agreed to a transfusion of 2 units of packed red blood cells. I worry about her nutritional status as she is young and not a diabetic and had a wound dehiscence. Not sure if she eats right at home. Encouraged healthy diet. Add hemoglobin A1c to her morning labs. Status: Acute Time Spent With Patient Time: Total time spent is greater than 50% in coordination of care (as documented) at patient's floor/unit and/or counseling patient: Time with patient: less than 15 minutes
[2024-12-06 03:45] VITALS: BP 144/90; PULSE 59; RESP 16; TEMP 36.6; O2SAT 99
[2024-12-06] MEDS: HYDROMORPHONE HCL 2 MG TABLET PO ×3 (03:48→17:31)
[2024-12-06] MEDS: PIPER/TAZO 3.375 GM PREMIX 3.375 GM/50 ML BAG IV ×3 (05:59→23:07)
[2024-12-06 06:44] LABS: Thyroid Stimulating Hormone 4.60 uIU/mL (0.55-4.78)
[2024-12-06 07:07] LABS: Glucose Estimated Average 117 mg/dL (80-131); Hemoglobin A1C 5.7 % Hgb (4.8-6.0)
--- NOTE | 2024-12-06 08:18 | PD.LDPPPRG ---
Subjective Subjective Interval history: Patient denies any problem or complaint. She reports adequate pain relief. She is voiding and ambulating and passing flatus. She is tolerating a regular diet without nausea or vomiting. She denies any excessive vaginal bleeding. She denies any dizziness or lightheadedness. She denies any chest pain palpitation shortness of breath or lower extremity pain. She denies any headache change in vision or right upper quadrant pain. Exam Vital Signs Temp Pulse Resp BP Pulse Ox O2 Del Method O2 Flow Rate 97.8 F 59 L 16 144/90 H 99 Room Air 2 12/06/24 03:45 12/06/24 03:45 12/06/24 03:45 12/06/24 03:45 12/06/24 03:45 12/06/24 03:45 12/05/24 12:48 Routine Respiratory Exam Comments: Clear to auscultation bilaterally Routine Cardiovascular Exam Comments: Regular rate and rhythm Routine Abdominal Exam Comments: Nondistended, fundus is firm. Dressing dry and intact. Routine Extremities Exam Comments: Nontender Objective Labs 12/06/24 05:20 12/03/24 05:12 Labs: Laboratory Results - last 24 hr 12/02/24 12/06/24 12/06/24 23:00 05:20 06:[address] Glu mg/dL 117 Hemoglobin A1c 5.7 TSH 4.60 U Amphetamines Confirm See Sep Rpt THC Confirmation See Sep Rpt Blood Type O Positive Antibody Screen NEGATIVE Crossmatch See Detail Blood Bank Wristband ID Yes Assessment & Plan Problem List (1) Wound dehiscence, : Status: Acute Assessment and plan: Remove dressing Encourage ambulation support if needed Possible discharge home tomorrow (2) care following delivery: Status: Acute (3) Substance use disorder: Status: Acute Assessment and plan: Social service consult (4) No care in current : Status: Acute (5) Methamphetamine use: Status: Acute (6) Encounter for sterilization: Status: Acute (7) Anemia affecting ninth : Status: Acute Time Spent With Patient Time: Total time spent is greater than 50% in coordination of care (as documented) at patient's floor/unit and/or counseling patient:
--- NOTE | 2024-12-06 08:29 | PC.SS ---
SCIENTIFIC RECRUITER received phone call from patient's assigned [facility] CWS worker, Carina ; requesting update on patient's status. Update provided. CWS to be notified upon patient's discharge. No restrictions at present time with mother visiting infant.
[2024-12-06 09:00] VITALS: BP 117/82; PULSE 68; RESP 15; TEMP 36.8; O2SAT 99
[2024-12-06 09:15] LABS: Basophils # (Auto) 0.1 Thou/mm3 (0.0-0.2); Basophils % (Auto) 1 % (0-2.5); Eosinophils # (Auto) 0.3 Thou/mm3 (0.0-0.5); Eosinophils % (Auto) 2 % (0-10); Hematocrit 30.9 % (36.0-46.0); Hemoglobin 9.7 g/dL (12.0-16.0); Immature Granulocytes Auto 0.42 Thou/mm3 (0.00-0.00); Lymphocytes # (Auto) 2.7 Thou/mm3 (1.0-4.8); Lymphocytes % (Auto) 24 % (10-50); Mean Corpuscular HGB Conc 31.4 g/dl (31.0-37.0); Mean Corpuscular Hemoglobin 22.4 pg (25.0-35.0); Mean Corpuscular Volume 71 fL (80-100); Monocytes # (Auto) 0.7 Thou/mm3 (0.0-0.8); Monocytes % (Auto) 6 % (0-12); Neutrophils # (Auto) 7.0 Thou/mm3 (1.8-7.7); Neutrophils % (Auto) 63 % (37-80); Nucleated Red Blood Cell # 0.10 Thou/mm3 (0.00-0.00); Nucleated Red Blood Cell % 1 /100 WBC (0); Platelet Count 425 Thou/mm3 (140-440); RDW Standard Deviation 47.4 fL (36.4-46.3); Red Blood Count 4.34 Miln/mm3 (4.00-5.20); White Blood Count 11.2 Thou/mm3 (3.6-11.0)
[2024-12-06] MEDS: DOCUSATE SOD 100 MG CAPSULE PO (09:52)
--- NOTE | 2024-12-06 13:07 | PC.SS ---
ON SITE SERVICES SPECIALIST informed by bedside nurse patient expected to d/c tomorrow. ON SITE SERVICES SPECIALIST requested that bedside nurse notify ON SITE SERVICES SPECIALIST if patient is discharged today in order to provide CWS update. CWS Jesús.Collette. Carina Chowdhury requesting disposition at time of discharge. ON SITE SERVICES SPECIALIST introduced self to the patient. Patient acknowledged active CWS case. Updated number for Alejo Liang provided: . ON SITE SERVICES SPECIALIST informed by patient that upon discharge patient plans on transitioning to [facility]. Patient planning on visiting with in NICU today.
[2024-12-06] MEDS: IBUPROFEN TAB 400 MG TABLET 800 MG PO (15:08)
[2024-12-06 15:10] VITALS: BP 116/77; PULSE 73; RESP 16; TEMP 36.7; O2SAT 99
[2024-12-06] MEDS: Milk Of Magnesia Susp 30 ML UDC PO (17:37)
[2024-12-06] MEDS: SIMETHICONE 80 MG CHEW PO (17:37)
[2024-12-07 03:55] VITALS: BP 121/81; PULSE 60; RESP 16; TEMP 36.7; O2SAT 99
[2024-12-07] MEDS: HYDROMORPHONE HCL 2 MG TABLET PO (03:55)
[2024-12-07] MEDS: PIPER/TAZO 3.375 GM PREMIX 3.375 GM/50 ML BAG IV (06:46)
[2024-12-07 07:25] VITALS: BP 124/78; PULSE 64; RESP 17; TEMP 36.8; O2SAT 97
--- NOTE | 2024-12-07 07:38 | PD.LDPPPRG ---
Subjective Subjective Interval history: Delivery type: , with postop wound dehiscence and secondary repair, currently doing well on antibiotics no signs of sepsis or infection Patient doing well this morning. No acute complaints. Ambulating, tolerating p.o. and voiding without difficulty. HTN/Pre-Eclampsia screen: No chest pain, shortness of breath, headache, visual changes, epigastric or right upper quadrant pain. Breast-feeding, lochia diminishing. Bowel: Flatus+/ BM+ Exam Vital Signs Temp Pulse Resp BP Pulse Ox O2 Del Method O2 Flow Rate 98.0 F 60 16 121/81 99 Room Air 2 12/07/24 03:55 12/07/24 03:55 12/07/24 03:55 12/07/24 03:55 12/07/24 03:55 12/07/24 03:55 12/07/24 03:55 Constitutional Constitutional: no acute distress Routine HEENT Exam Head: Present normocephalic and atraumatic Eye: Present EOMI and PERRL ENT: Present mucous membranes moist Routine Neck Exam Neck: Present supple and trachea midline Routine Respiratory Exam Respiratory: Present chest non-tender, lungs clear, normal breath sounds and no resp distress Routine Cardiovascular Exam Cardiovascular: Present RRR Routine Abdominal Exam Abdominal: Present soft and normoactive bowel sounds Routine Extremities Exam Extremities: Present full ROM Routine Skin Exam Skin: Present intact, dry and warm Routine Neurological Exam Neurological: Present alert, oriented X3 and CN II-XII intact Routine Psychiatric Exam Psychiatric: Present normal affect and normal thought process Objective Labs 12/06/24 05:20 12/03/24 05:12 Labs: Laboratory Results - last 24 hr 12/06/24 05:20 WBC 11.2 H RBC 4.34 Hgb 9.7 L D Hct 30.9 L MCV 71 L MCH 22.4 L MCHC 31.4 RDW Std Deviation 47.4 H Plt Count 425 D Neut % (Auto) 63 Lymph % (Auto) 24 [place] % (Auto) 6 Eos % (Auto) 2 Baso % (Auto) 1 Neut # (Auto) 7.0 Lymph # (Auto) 2.7 [place] # (Auto) 0.7 Eos # (Auto) 0.3 Baso # (Auto) 0.1 Immature Gran # (Auto) 0.42 H Absolute Nucleated RBC 0.10 H Immature Gran % 4 H Nucleated RBC % 1 H Assessment & Plan Problem List (1) Wound dehiscence, : Status: Acute (2) care following delivery: Status: Acute Assessment and plan: PPD/POD#4 status post and postop day #3 status post secondary wound repair 1. Continue routine care 2. Transition to PO meds. 3. Encourage to ambulate/ breast-feed 4. Anticipate discharge home today. (3) Substance use disorder: Status: Acute (4) No care in current : Status: Acute (5) Methamphetamine use: Status: Acute (6) Encounter for sterilization: Status: Acute (7) Anemia affecting ninth : Status: Acute Time Spent With Patient Time: Total time spent is greater than 50% in coordination of care (as documented) at patient's floor/unit and/or counseling patient:
--- NOTE | 2024-12-07 07:40 | PD.LDDS ---
DS: Providers Provider Date of admission: 12/02/24 23:39 Primary care physician: Physician No Primary/Family Admitting Provider: Bang Davidson MD Attending Provider on Admission: Neil Ceballos MD Consults: 12/03/24 02:55 Referral Routine Comment: Attending Provider on DC: Bang Davidson MD Discharging Provider: Bang Davidson MD DS: Diagnosis Discharge Diagnosis (1) Anemia affecting ninth : Status: Acute (2) care following delivery: Status: Acute (3) Encounter for sterilization: Status: Acute (4) Previous delivery affecting : Status: Acute Problem List Completed Was Problem List Reviewed/Reconciled?: Yes Summary/Hosp Course Brief History: 39-year-old 8 para 6-0-1-6 presented to triage with gross rupture of membranes. Patient has a history of 1 and the remaining were vaginal deliveries. No care in the current , she was seen here in triage about 2 weeks ago and all her labs were done at the time. On admission patient admitted to using methamphetamine as well as THC By the best estimate she has a estimated due date of 12/19/2024 that makes her 37 weeks and 5 days Of note patient had a positive RPR with TP a titer of 1 and 2. Her toxicology screen today is positive for THC and methamphetamine. Peripartum Data Delivery Method: Low Transverse Episiotomy Description: None Procedures: Procedures Operation Date: 12/03/24 00:00 Actual Procedure Side Surgeon p w/tubal OB Bilateral Bang Davidson MD Operation Date: 12/04/24 11:45 Actual Procedure Side Surgeon p Abdominal Wound Dehiscence Status Post Bang Davidson MD Time Spent with Patient Time attestation: Total time spent providing and/or coordinating discharge services: Exam Vital Signs Temp Pulse Resp BP Pulse Ox O2 Del Method O2 Flow Rate 98.3 F 64 17 124/78 97 Room Air 2 12/07/24 07:25 12/07/24 07:25 12/07/24 07:25 12/07/24 07:25 12/07/24 07:25 12/07/24 07:25 12/07/24 03:55 Discharge Plan Plan Patient Disposition: HOME (Self Care) Disposition Comment: Staple removal with Dr Davidson after 2 weeks Patient condition on transfer: Stable Prescriptions/Referrals Prescriptions/Med Rec: New hydrocodone-acetaminophen 5-325 mg Tablet 1 tab PO Q6HR MDD 4 PRN (Reason: Patient rated pain 9 to 10) 5 Days Qty: 20 0RF docusate sodium 100 mg Capsule 100 mg PO QDAY 30 Days Qty: 30 0RF ibuprofen 400 mg Tablet 800 mg PO Q8HR PRN (Reason: Pain Scale 4-6 (Moderate) 10 Days Qty: 40 0RF Referrals: Bang Davidson MD [Physician] - No Primary/Family,Physician [Primary Care Provider] - Patient/Caregiver Discharge Instructions Meds to Beds: Yes Discharge Activity: activity as tolerated Education Materials: C Section Dc Print Language: Lithuanian Stand Alone Forms: Alycia Award Info., Patient Portal Info Letter, DC from Surgery Discharge Order Discharge Orders: Discharge (Routine); Ordered 12/07/24 Ordered By: Bang Davidson Planned Discharge Date 12/07/24
[2024-12-07] MEDS: DOCUSATE SOD 100 MG CAPSULE PO (09:40)
[2024-12-07] MEDS: IBUPROFEN TAB 400 MG TABLET 800 MG PO (09:43)
== END 2024-12-07 11:50 | disposition home or self-care (01) | DRG 539 ==
LOC: S4SX 22:57 → S4NX 12-03 05:47 → S4SX 12-03 06:27
PROVIDERS: Obstetrics & Gynecology; Admitting Provider Obstetrics & Gynecology; Visit Provider Specialist
PROC: 0UL70ZZ Occlusion of Bilateral Fallopian Tubes, Open Approach (ICD-10-PCS; CPT 59514; principal; 2024-12-02 23:45)
PROC: 0UQ90ZZ Repair Uterus, Open Approach (ICD-10-PCS; principal; 2024-12-04 11:30)
DX: O34.211 Maternal care for low transverse scar from previous cesarean delivery (principal); Z3A.37 37 weeks gestation of pregnancy; O99.324 Drug use complicating childbirth; F15.90 Other stimulant use, unspecified, uncomplicated; F12.90 Cannabis use, unspecified, uncomplicated; O69.81X0 Labor and delivery complicated by cord around neck, without compression, not applicable or unspecified; O90.0 Disruption of cesarean delivery wound; O99.02 Anemia complicating childbirth; Z30.2 Encounter for sterilization; Z37.0 Single live birth
CPT/HCPCS: 36415; 59409; 80053; 80307; 83036; 83615; 83880; 84443; 84550; 85025; 86780; 86850; 86900; 86901; 86923; 94762; A4217; A4649; J0689; J1100; J1885; J2250; J2274; J2371; J2543; J2590; J2704; J2765; J3010; J3105; J3490; J7030; J7120; P9016; A9270; J2270